=== PATIENT | female | born 1945 | race Caucasian/White ===

== ENCOUNTER 2016-07-31 21:35 | Inpatient (IN) | payer OTHER ==
[~2016-07-31] VITALS: Ht 160 cm; Wt 66.1 kg
[2016-07-31 22:06] LABS: HEMATOCRIT 45.3 % (36.0-46.0); MCH 30.5 PG (29.0-34.0); MCHC 34.7 G/DL (30.0-36.0); MCV 88.1 FL (83-99); PLATELET COUNT 271 K/uL (156-360); RBC DIS.WIDTH-CV 13.1 % (11.8-14.6); RBC DIS.WIDTH-SD 41.7 % (39-53); RED BLOOD COUNT 5.14 M/uL (3.80-5.20); WHITE BLOOD COUNT 8.8 K/uL (4.1-10.2)
[2016-07-31 22:14] LABS: CHLORIDE 102 mEq/L (99-109); SODIUM 140 mEq/L (136-147)
[2016-07-31 22:16] LABS: GLUCOSE 155 mg/dL (70-99)
[2016-07-31 22:17] LABS: ANION GAP 16 MEQ/L (2-14)
[2016-07-31 22:18] LABS: TOTAL BILIRUBIN 1.1 mg/dL (0.0-1.0)
[2016-07-31 22:19] LABS: ALKALINE PHOSPHATASE 119 IU/L (3-129)
[2016-07-31 22:20] LABS: GFR ESTIMATE (CALCULATED) > 59 mL/min/
[2016-07-31 22:21] LABS: UREA NITROGEN (BUN) 14 mg/dL (9-23)
[2016-07-31 22:59] LABS: TROP-I INTERPRETATION NEGATIVE; TROPONIN-I 0.08 ng/mL (0.0-0.30)
[2016-07-31 23:11] LABS: LIPASE 11 U/L (1.0-51.0)
[2016-08-01 00:33] LABS: ADD MIUA? NO; BILIRUBIN NEGATIVE; BLOOD NEGATIVE; COLOR STRAW ((YELLOW)); GLUCOSE (STRIP) NEGATIVE; KETONES 20; LEUKOCYTES NEGATIVE; NITRITE NEGATIVE; PROTEIN (STRIP) NEGATIVE; SPECIFIC GRAVITY 1.044 (1.000-1.030); UCUL ADDED? NO; UROBILINOGEN 0.2 MG/DL (0.2-1.0)
[2016-08-01] MEDS ORDERED: LISINOPRIL20 MG PO (00:41)
[2016-08-01] MEDS ORDERED: ALPHA LIPOIC A100 MG PO (00:42)
[2016-08-01] MEDS ORDERED: VITAMIN D2000 UNIT PO (00:42)
[2016-08-01] MEDS ORDERED: OMEGA-31000 M1 PO (00:42)
[2016-08-01] MEDS ORDERED: ONE DAILY WOME1 EAC1 PO (00:43)
[2016-08-01 03:53] VITALS: BP 198/86
[2016-08-01 07:00] VITALS: BP 148/67
[2016-08-01 12:19] VITALS: BP 139/64
[2016-08-01 17:24] VITALS: BP 168/88
[2016-08-01 19:50] VITALS: BP 168/88
[2016-08-01 23:18] VITALS: BP 164/79
[2016-08-02 04:50] VITALS: BP 198/98
[2016-08-02 06:31] LABS: EOSINOPHIL (%) 0 % (0-5); HEMATOCRIT 40.9 % (36.0-46.0); IMMATURE GRANULOCYTE (%) 0.5 % (0.0-0.7); IMMATURE GRANULOCYTE COUNT 0.1 K/uL; LYMPHOCYTE COUNT 1.9 K/uL (1.0-2.8); MCH 31.6 PG (29.0-34.0); MCHC 34.7 G/DL (30.0-36.0); MCV 90.9 FL (83-99); MEAN PLAT.VOLUME 10.7 uM^3 (9.5-12.4); MONOCYTE (%) 9.7 % (3-12); MONOCYTE COUNT 0.9 K/uL (0-0.8); NEUTROPHIL (%) 69.4 % (45-76); NEUTROPHIL COUNT 6.6 K/uL (1.8-6.4); PLATELET COUNT 203 K/uL (156-360); RBC DIS.WIDTH-CV 13.6 % (11.8-14.6); WHITE BLOOD COUNT 9.4 K/uL (4.1-10.2)
[2016-08-02 06:57] LABS: ANION GAP 11 MEQ/L (2-14); CHLORIDE 98 MEQ/L (99-109); GFR ESTIMATE (CALCULATED) > 59 mL/min/; POTASSIUM 3.8 MEQ/L (3.7-5.4); SAMPLE HEMOLYSIS CHECK 0; SAMPLE ICTERIC CHECK 0; SAMPLE LIPEMIA CHECK 0; SODIUM 134 MEQ/L (136-147); UREA NITROGEN (BUN) 13 mg/dL (9-23)
[2016-08-02 06:58] LABS: GLUCOSE 106 mg/dL (70-99)
[2016-08-02 07:31] VITALS: BP 179/78
[2016-08-02 09:58] LABS: ALKALINE PHOSPHATASE 90 IU/L (3-129); DIRECT BILIRUBIN 0.2 mg/dL (0.0-0.3)
[2016-08-02 11:22] VITALS: BP 160/90
[2016-08-02 14:56] VITALS: BP 193/83
== END 2016-08-02 19:16 | disposition left against medical advice (07) | DRG 392 ==
LOC: EME 21:35 → EDOF 08-01 02:04 → 4EAST 08-01 02:04
PROVIDERS: Hospitalist
DX: A08.4 Viral intestinal infection, unspecified (principal); R07.9 Chest pain, unspecified; R11.2 Nausea with vomiting, unspecified; M54.9 Dorsalgia, unspecified; I16.0 Hypertensive urgency; R19.07 Generalized intra-abdominal and pelvic swelling, mass and lump; E86.0 Dehydration; I95.1 Orthostatic hypotension; R79.89 Other specified abnormal findings of blood chemistry; F41.9 Anxiety disorder, unspecified
CPT/HCPCS: 71275; 74174; 78227; 80048; 80053; 80076; 81003; 83605; 83690; 84484; 85025; 85027; 87177; 87329; 87493; 93005; 99281; 99285; A9537; J0360; J1170; J1644; J2270; J2405; J2805; J3010; J7030; S0028

== ENCOUNTER 2016-08-06 13:31 | Inpatient (IN) | payer OTHER ==
[~2016-08-06] VITALS: Ht 160 cm; Wt 66.7 kg
[~2016-08-06 13:31] MED LIST: ALPHA LIPOIC A100 MG PO; LISINOPRIL20 MG PO; OMEGA-31000 M1 PO; ONE DAILY WOME1 EAC1 PO; VITAMIN D2000 UNIT PO
[2016-08-06 14:40] LABS: HEMATOCRIT 42.4 % (36.0-46.0); MCH 31.4 PG (29.0-34.0); MCHC 36.1 G/DL (30.0-36.0); MEAN PLAT.VOLUME 9.9 uM^3 (9.5-12.4); PLATELET COUNT 254 K/uL (156-360); RBC DIS.WIDTH-SD 40.5 % (39-53); RED BLOOD COUNT 4.88 M/uL (3.80-5.20)
[2016-08-06 14:41] LABS: MCV 86.9 FL (83-99); WHITE BLOOD COUNT 13.8 K/uL (4.1-10.2)
[2016-08-06 14:47] LABS: CHLORIDE 98 mEq/L (99-109); POTASSIUM 3.5 mEq/L (3.7-5.4); SODIUM 135 mEq/L (136-147)
[2016-08-06 14:50] LABS: GLUCOSE 118 mg/dL (70-99)
[2016-08-06 14:51] LABS: ANION GAP 12 MEQ/L (2-14)
[2016-08-06 14:53] LABS: ALKALINE PHOSPHATASE 94 IU/L (3-129); GFR ESTIMATE (CALCULATED) > 59 mL/min/
[2016-08-06 14:54] LABS: TOTAL BILIRUBIN 1.4 mg/dL (0.0-1.0); UREA NITROGEN (BUN) 15 mg/dL (9-23)
[2016-08-06] MEDS ORDERED: HYDROCHLOROTH12.5 M3 PO (15:23)
[2016-08-06] MEDS ORDERED: ASPIR 8181 M1 PO (15:30)
[2016-08-06 16:24] LABS: ADD MIUA? NO; BILIRUBIN NEGATIVE; BLOOD NEGATIVE; COLOR YELLOW ((YELLOW)); GLUCOSE (STRIP) NEGATIVE; KETONES 5; LEUKOCYTES NEGATIVE; NITRITE NEGATIVE; PROTEIN (STRIP) NEGATIVE; UCUL ADDED? NO; UROBILINOGEN 0.2 MG/DL (0.2-1.0)
[2016-08-06] MEDS ORDERED: LISINOPRIL40 MG PO (19:13)
[2016-08-06 23:30] VITALS: BP 138/67; BP 163/61
[2016-08-07] VITALS (9 sets, daily range): BP systolic 124–153; BP diastolic 61–84
[2016-08-07 00:50] LABS: METH RESISTANT S AUREUS PCR NEGATIVE (NEGATIVE)
[2016-08-07 00:54] LABS: PROBE CHECK PASS; SPECIMEN PROCESSING CONTROL PASS
[2016-08-07 05:54] LABS: MCH 30.4 PG (29.0-34.0); MCHC 34.5 G/DL (30.0-36.0); MCV 88.1 FL (83-99); MEAN PLAT.VOLUME 10.2 uM^3 (9.5-12.4); PLATELET COUNT 258 K/uL (156-360); RBC DIS.WIDTH-CV 13.1 % (11.8-14.6); RBC DIS.WIDTH-SD 41.8 % (39-53); RED BLOOD COUNT 4.77 M/uL (3.80-5.20); WHITE BLOOD COUNT 11.2 K/uL (4.1-10.2)
[2016-08-07 06:17] LABS: ANION GAP 10 MEQ/L (2-14); CHLORIDE 104 MEQ/L (99-109); GFR ESTIMATE (CALCULATED) > 59 mL/min/; GLUCOSE 123 mg/dL (70-99); POTASSIUM 3.3 MEQ/L (3.7-5.4); SAMPLE HEMOLYSIS CHECK 0; SAMPLE ICTERIC CHECK 0; SAMPLE LIPEMIA CHECK 0; SODIUM 138 MEQ/L (136-147); UREA NITROGEN (BUN) 10 mg/dL (9-23)
[2016-08-08] VITALS: BP 124/57
[2016-08-08 04:00] VITALS: BP 139/63
[2016-08-08 05:59] LABS: EOSINOPHIL (%) 0.7 % (0-5); EOSINOPHIL COUNT 0.1 K/uL (0-0.3); HEMATOCRIT 37.6 % (36.0-46.0); IMMATURE GRANULOCYTE (%) 0.2 % (0.0-0.7); LYMPHOCYTE COUNT 3.3 K/uL (1.0-2.8); MCH 31.8 PG (29.0-34.0); MCHC 35.9 G/DL (30.0-36.0); MCV 88.7 FL (83-99); MEAN PLAT.VOLUME 10.2 uM^3 (9.5-12.4); MONOCYTE (%) 11.8 % (3-12); MONOCYTE COUNT 1.2 K/uL (0-0.8); NEUTROPHIL (%) 55.5 % (45-76); NEUTROPHIL COUNT 5.8 K/uL (1.8-6.4); PLATELET COUNT 225 K/uL (156-360); RBC DIS.WIDTH-CV 13.4 % (11.8-14.6); RBC DIS.WIDTH-SD 43.3 % (39-53); RED BLOOD COUNT 4.24 M/uL (3.80-5.20); WHITE BLOOD COUNT 10.5 K/uL (4.1-10.2)
[2016-08-08 06:22] LABS: ANION GAP 9 MEQ/L (2-14); CHLORIDE 104 MEQ/L (99-109); GFR ESTIMATE (CALCULATED) > 59 mL/min/; GLUCOSE 114 mg/dL (70-99); MAGNESIUM 1.9 mg/dl (1.3-2.7); POTASSIUM 3.5 MEQ/L (3.7-5.4); SAMPLE HEMOLYSIS CHECK 0; SAMPLE ICTERIC CHECK 0; SAMPLE LIPEMIA CHECK 0; SODIUM 137 MEQ/L (136-147); UREA NITROGEN (BUN) 11 mg/dL (9-23)
[2016-08-08 07:00] VITALS: BP 163/70
[2016-08-08 20:00] VITALS: BP 111/61
[2016-08-08 23:00] VITALS: BP 123/70
[2016-08-09] VITALS (7 sets, daily range): BP systolic 124–148; BP diastolic 62–84
[2016-08-09 06:15] LABS: EOSINOPHIL (%) 1.6 % (0-5); EOSINOPHIL COUNT 0.2 K/uL (0-0.3); HEMATOCRIT 38.9 % (36.0-46.0); IMMATURE GRANULOCYTE (%) 0.2 % (0.0-0.7); LYMPHOCYTE COUNT 3.4 K/uL (1.0-2.8); MCH 31.3 PG (29.0-34.0); MCV 89.6 FL (83-99); MEAN PLAT.VOLUME 10.2 uM^3 (9.5-12.4); MONOCYTE (%) 12.2 % (3-12); MONOCYTE COUNT 1.2 K/uL (0-0.8); NEUTROPHIL (%) 51.9 % (45-76); NEUTROPHIL COUNT 5.3 K/uL (1.8-6.4); PLATELET COUNT 221 K/uL (156-360); RBC DIS.WIDTH-CV 13.3 % (11.8-14.6); RBC DIS.WIDTH-SD 43.8 % (39-53); RED BLOOD COUNT 4.34 M/uL (3.80-5.20); WHITE BLOOD COUNT 10.2 K/uL (4.1-10.2)
[2016-08-09 06:41] LABS: ANION GAP 8 MEQ/L (2-14); CHLORIDE 102 MEQ/L (99-109); GFR ESTIMATE (CALCULATED) > 59 mL/min/; GLUCOSE 108 mg/dL (70-99); SAMPLE HEMOLYSIS CHECK 0; SAMPLE ICTERIC CHECK 0; SAMPLE LIPEMIA CHECK 0; SODIUM 137 MEQ/L (136-147); UREA NITROGEN (BUN) 11 mg/dL (9-23)
[2016-08-09] MEDS ORDERED: CLONIDINE HCL0.1 MG PO (13:34)
[2016-08-09] MEDS ORDERED: HYDROCHLOROTHIA25 MG PO (13:34)
[2016-08-09] MEDS ORDERED: AMLODIPINE BESY10 MG PO (13:34)
== END 2016-08-09 16:09 | disposition home or self-care (01) | DRG 65 ==
LOC: EME 13:31 → 4WEST 22:17 → EDOF 22:17 → 4WEST 23:24
PROVIDERS: Internal Medicine Critical Care Medicine; Internal Medicine Nephrology
PROC: 03HY32Z Insertion of Monitoring Device into Upper Artery, Percutaneous Approach (ICD-10-PCS; principal; 2016-08-06)
DX: I61.5 Nontraumatic intracerebral hemorrhage, intraventricular (principal); I10 Essential (primary) hypertension; E87.6 Hypokalemia; I16.9 Hypertensive crisis, unspecified; K21.9 Gastro-esophageal reflux disease without esophagitis; G89.29 Other chronic pain; M54.9 Dorsalgia, unspecified
CPT/HCPCS: 70450; 70496; 70498; 80048; 80053; 81003; 82088 90; 83735; 84100; 84244 90; 85025; 85027; 87641; 93005; 99281; 99285; J1200; J2765; J3475; J7030; J7040; J7050